=== PATIENT | male | born 2000 | race African-American/Black ===

== ENCOUNTER 2021-09-14 23:01 | Emergency (ER) | payer SELFPAY ==
[2021-09-15 18:09] LABS: SARS-CoV-2 PCR by NAA Not Detected (NotDetected)
== END 2021-09-14 23:55 | disposition home or self-care (01) ==
LOC: CSHERS 23:01
DX: Z02.79 Encounter for issue of other medical certificate (principal); Z20.822 Contact with and (suspected) exposure to COVID-19; E11.9 Type 2 diabetes mellitus without complications; Z79.4 Long term (current) use of insulin
CPT/HCPCS: 99283; U0003; U0005